=== PATIENT | male | born 1970 | race Caucasian/White ===

== ENCOUNTER 2021-02-21 19:48 | Emergency (ER) | payer MEDICAID, OTHER ==
[~2021-02-21] VITALS: Ht 175.3 cm; Wt 89.4 kg
[2021-02-22] MEDS ORDERED: CEPHALEXIN 500 MG CAP PO ONE (00:30)
[2021-02-22] MEDS ORDERED: CEPH500C PO (00:31)
[2021-02-22 01:10] VITALS: BP 136/83
--- NOTE | 2021-02-24 10:43 | REP ---
INDICATION: LUMP ON LEFT TESTICLE. COMPARISON: None. TECHNIQUE: Real-time sonographic evaluation of scrotum and contents performed. FINDINGS: There is diffuse scrotal wall thickening more so on the left than on the right. Testicles appear normal in size and echotexture, right testicle measuring 2.6 x 1.6 x 2.2 cm and left testicle 2.8 x 1.8 x 2.2 cm. There is no evidence of testicular mass or torsion, blood flow is seen in each testicle with duplex Doppler evaluation. There is a cyst in the head of the left epididymis measuring 7 x 5 x 4 mm. There is 2 mm calcification along the surface of the left testicle. Mildly prominent blood vessels are seen inferior to the left testicle. Below the left testicle there is a heterogeneous hypoechoic mass measuring 3.3 x 1.5 x 1.9 cm. IMPRESSION: In the left hemiscrotum below the left testicle there is an oval heterogeneous mass measuring 3.3 x 1.5 x 1.9 cm. This is a nonspecific finding. It could be related to a hernia and represent mesenteric fat and \ or bowel. This could represent an extratesticular mass. Significant scrotal wall thickening suggests cellulitis, more so on the left than on the right. No testicular mass or torsion. Preliminary report provided by [facility] at the time of the exam. <Electronically signed by Rylan Otto > 02/24/21 [id number]
--- NOTE | 2021-02-24 14:14 | ED PDOC ---
Post-Departure Follow-Up scrotal us faxed to dr diaz and antoni mitchell for fu Daren Person MD February 24, 2021 14:14
== END 2021-02-22 01:12 | disposition home or self-care (01) ==
LOC: M ED 19:48
DX: L72.3 Sebaceous cyst (principal); F17.200 Nicotine dependence, unspecified, uncomplicated; Z79.899 Other long term (current) drug therapy

== ENCOUNTER 2021-02-24 14:31 | Inpatient (IN) | payer OTHER ==
[~2021-02-24] VITALS: Ht 177.8 cm; Wt 89.6 kg
[~2021-02-24 14:31] MED LIST: CEPH500C PO
--- NOTE | 2021-02-24 17:50 | REP ---
INDICATION: pain and swelling. COMPARISON: 02/21/2021. TECHNIQUE: Real-time sonographic evaluation of scrotum and contents performed. FINDINGS: Testicles appear normal in size and echotexture, right testicle measuring 2.6 x 1.7 x 2.4 cm left testicle 2.8 x 2.1 x 2.3 cm. There is no testicular mass or torsion. Blood flow seen in each testicle with duplex Doppler evaluation. Once again there is diffuse left scrotal wall thickening suspicious for cellulitis. There is a cyst in the head of the left epididymis 8 mm in diameter. At the site of a painful red lump of the left scrotum there is an underlying complex structure which has increased in size compared to the prior study, measuring 4.4 x 3.4 x 2.1 cm. There the periphery appears somewhat hyperemic. This appears to lie within the wall of the scrotum and I suspect this represents focal phlegmonous change and possibly a developing abscess. There are small hydroceles bilaterally. IMPRESSION: Diffuse scrotal wall thickening particularly on the left, suspicious for cellulitis. At the site of the painful red lump in the left scrotum there is an underlying complex structure in the wall of the scrotum which has increased in size compared to 02/21/2021, with peripheral hyperemia. I suspect this represents focal phlegmonous change in possibly a developing abscess. <Electronically signed by Rylan Otto > 02/24/21 [id number]
[2021-02-24] MEDS ORDERED: NS 1,000 ML IV ONE (18:40)
[2021-02-24] MEDS ORDERED: ONDANSETRON 4MG/2ML VIAL IV ONE (18:55)
[2021-02-24] MEDS ORDERED: MORPHINE 4 MG/ML 1ML VIAL/SYRINGE (J2270) IV ONE (18:55)
[2021-02-24 19:40] LABS: HEMATOCRIT 45.3 % (42.0-52.0); HEMOGLOBIN 15.2 g/dl (13.5-17.5); MEAN CORPUSCULAR HEMOGLOBIN 30.6 pg (27.0-33.0); MEAN CORPUSCULAR HGB CONC 33.6 g/dl (32.0-36.5); MEAN CORPUSCULAR VOLUME 91.1 fl (80.0-96.0); PLATELET COUNT, AUTOMATED 224 10^3/uL (150-450); RED BLOOD COUNT 4.97 10^6/uL (4.30-6.10); WHITE BLOOD COUNT 10.9 10^3/uL (4.0-10.0)
[2021-02-24 20:03] LABS: ATYPICAL LYMPH 8 % (0-5); EOSINOPHILS 3 % (0-3); LYMPHOCYTES 38 % (16-44); MONOCYTES 4 % (0-5); NEUTROPHILS 47 % (28-66)
[2021-02-24 20:04] LABS: PLATELET ESTIMATE NORMAL (NORMAL)
[2021-02-24 20:09] LABS: BLOOD UREA NITROGEN 8 MG/DL (7-18); CALCIUM LEVEL 8.8 MG/DL (8.5-10.1); CARBON DIOXIDE LEVEL 29 MEQ/L (21-32); CHLORIDE LEVEL 108 MEQ/L (98-107); CREATININE FOR GFR 0.76 MG/DL (0.70-1.30); GLOMERULAR FILTRATION RATE > 60.0 (>56); GLUCOSE, FASTING 86 MG/DL (70-100); POTASSIUM SERUM 3.6 MEQ/L (3.5-5.1); SODIUM LEVEL 141 MEQ/L (136-145)
[2021-02-24 20:19] LABS: ALBUMIN 3.9 GM/DL (3.2-5.2); BILIRUBIN,DIRECT 0.2 MG/DL (0.0-0.2); BILIRUBIN,TOTAL 0.5 MG/DL (0.2-1.0); TOTAL PROTEIN 7.6 GM/DL (6.4-8.2)
[2021-02-24] MEDS ORDERED: GENTAMICIN 80 MG in D5W 50 ML IV ONE (20:35)
[2021-02-24] MEDS ORDERED: VANCOMYCIN HCL 1,000 MG, VIAL MATE ADAPTER 1 EACH in NS 250 ML IV STA (20:48)
[2021-02-24] MEDS ORDERED: CEPH500T PO (20:51)
[2021-02-24] MEDS ORDERED: VANCOMYCIN HCL 1,000 MG, VIAL MATE ADAPTER 1 EACH in NS 250 ML IV ONE (21:00)
[2021-02-24] MEDS ORDERED: MIDAZOLAM INJ 2MG/2ML VIAL (J2250 PER 1MG) As Ordered ONE (21:12)
[2021-02-24] MEDS ORDERED: fentaNYL 100 MCG/2 ML INJECTION (J3010) As Ordered ONE ×2 (21:13→22:37)
[2021-02-24] MEDS ORDERED: propofoL 200 MG/20 ML VIAL As Ordered ONE (21:15)
[2021-02-24] MEDS ORDERED: dexameTHASONE 4 MG/ML 1ML VIAL (J1100 PER 1MG) As Ordered ONE (21:15)
[2021-02-24] MEDS ORDERED: LIDOCAINE 2% 100MG/5ML SDV (FOR ANES.) As Ordered ONE (21:16)
[2021-02-24] MEDS ORDERED: KETOROLAC 60MG 2ML VIAL As Ordered ONE (21:18)
[2021-02-24] MEDS ORDERED: ONDANSETRON 4MG/2ML VIAL As Ordered ONE (21:18)
[2021-02-24] MEDS ORDERED: NS 1,000 ML IV SCH (21:20)
[2021-02-24] MEDS ORDERED: MOM 30ML SUSPENSION UDC PO PRN (21:20)
[2021-02-24] MEDS ORDERED: MAALOX 30 ML SUSP *UDC PO PRN (21:20)
[2021-02-24] MEDS ORDERED: ACETAMINOPHEN TAB 650MG DOSE (2X325MG) PO PRN (21:20)
[2021-02-24 21:30] LABS: RSV AMPLIFICATION NEGATIVE (NEGATIVE)
--- NOTE | 2021-02-24 21:37 | HPEPDOC ---
[facility] Medical History & Physical Date of Admission February 24, 2021 Date of Service: February 24, 2021 History and Physical CHIEF COMPLAINT: Testicular swelling HISTORY OF PRESENT ILLNESS: This is a 51-year-old male who presented to emergency department for scrotal pain and swelling. Patient tells me that he noticed a small raisin-sized mass around his left testicle but not attached to the testicle and close to the skin months ago about a month ago he noticed that it increased in size and became the size of a grapefruit. Over the past 8 days if continues to get more swollen. He came to the emergency department on Wednesday ultrasound was done suggestive of a cyst and he was given Keflex. Yesterday he began having pain in the area and continued swelling of his testicle. Up until this point he had not experienced any pain. He denies any fevers or chills. He denies chest pain or shortness of breath. He tells me that the pain and swelling is localized around the left testicle and doesn't think it has spread elsewhere. Pain doesn't radiate localized around the left testicle. PAST MEDICAL/SURGICAL HISTORY: Denies medical problems Endorses neck surgery C7-T1 Endorses right wrist surgery with titanium plate SOCIAL HISTORY: Denies alcohol use Endorses tobacco use for about 30 years one pack per day Denies illicit drug use other than cannabis use FAMILY HISTORY: Reviewed and none contributory to this admission ALLERGIES: Please see below. REVIEW OF SYSTEMS: 10 point review of systems complete all negative otherwise stated in HPI HOME MEDICATIONS: Please see below. PHYSICAL EXAMINATION: Constitutional: Awake and alert, in no apparent distress ENT: Sclera are clear. Mucosa is moist. Respiratory: Lungs CTA bilaterally. No respiratory distress. Cardiovascular: RRR S1 and S2 are normal, no murmur Gastrointestinal: Abdomen is soft, non distended, non tender, BS present. Musculoskeletal: No lower extremity edema. : Scrotum is swollen especially on the left side there is diffuse scrotal wall swelling is indurated and painful around the left testicle. Neurologic: No focal neurological deficit. Mental Status: A&O x3, normal affect LABORATORY DATA: See below. IMAGING: Scrotum US IMPRESSION: Diffuse scrotal wall thickening particularly on the left, suspicious for cellulitis. At the site of the painful red lump in the left scrotum there is an underlying complex structure in the wall of the scrotum which has increased in size compared to 02/21/2021, with peripheral hyperemia. I suspect this represents focal phlegmonous change in possibly a developing abscess. MICROBIOLOGY: Please see below. ASSESSMENT # Complex left testicular collection concerning for abscess # Possibly overlying testicular cellulitis PLAN Admitted to medical service. Concern of a complex testicular collection could be an abscess. Urology was consulted. Will likely be going to the operating room with Dr. Kavon cody for I&D. Nothing by mouth for now. IVFs. IV vancomycin and Zosyn. Blood cultures were collected. Has mild leukocytosis 10.9. A [facility] Vital Signs Vital Signs Date Time Temp Pulse Resp B/P (MAP) Pulse Ox O2 Delivery O2 Flow Rate FiO2 02/24/21 20:04 18 02/24/21 19:16 02/24/21 15:13 97.8 82 97 Room Air Laboratory Data Labs 24H Laboratory Tests 2 02/24/21 19:27: Neutrophils (%) (Auto) , Nucleated Red Blood Cells % (auto) 0.0, Neutrophils 47, Lymphocytes (Manual) 38, Monocytes (Manual) 4, Eosinophils (Manual) 3, Atypical Lymphocytes 8H, Platelet Estimate NORMAL, Anion Gap 4L, Glomerular Filtration Rate > 60.0, Lactic Acid Level 0.7, Calcium Level 8.8, Total Bilirubin 0.5, Direct Bilirubin 0.2, Aspartate Amino Transf (AST/SGOT) 7, Alanine Am inotransferase (ALT/SGPT) 15, Alkaline Phosphatase 113, Total Protein 7.6, Albumin 3.9, Albumin/Globulin Ratio 1.1, Lipase 140 02/24/21 19:28: Urine Color YELLOW, Urine Appearance CLEAR, Urine pH 5.0, Urine Specific [address] 1.023, Urine Protein NEGATIVE, Urine Glucose (UA) NEGATIVE, Urine Ketones NEGATIVE, Urine Blood 1+H, Urine Nitrite NEGATIVE, Urine Bilirubin NEGATIVE, Urine Urobilinogen 0.2, Urine Leukocyte Esterase NEGATIVE, Urine WBC (Auto) 1, Urine RBC (Auto) 3, Urine Hyaline Casts (Auto) 0, Urine Bacteria (Auto) NEGATIVE, Urine Squamous Epithelial Cells 0, Urine Mucus (Auto) SMALL, Urine Sperm (Auto) , Trichomonas vaginalis (PCR) NOT DETECTED 02/24/21 20:42: Coronavirus (COVID-19)(PCR) NEGATIVE, Influenza Type A (RT-PCR) NEGATIVE, Influenza Type B (RT-PCR) NEGATIVE, Respiratory Syncytial Virus (PCR) NEGATIVE CBC/BMP Laboratory Tests 02/24/21 19:27 Microbiology Microbiology 02/24/21 Blood Culture, Received Pending 02/24/21 Blood Culture, Received Pending Home Medications Scheduled Cephalexin (Cephalexin) 500 Mg Tablet, 500 MG PO QID STARTED 02/22/21 Allergies Coded Allergies: No Known Allergies (Unverified , 02/21/21) A-FIB/CHADSVASC A-FIB History Current/History of A-Fib/PAF?: No KEISHA LYON MD February 24, 2021 21:37
[2021-02-24] MEDS ORDERED: VANCOMYCIN HCL 1,000 MG, VIAL MATE ADAPTER 1 EACH in NS 250 ML IV SCH (21:50)
[2021-02-24] MEDS ORDERED: GENTAMICIN 80 MG in IV 1 EA IV ONE (22:00)
[2021-02-24] MEDS ORDERED: ZOSYN 4.5GM VIAL (J2543) As Ordered ONE (22:24)
--- NOTE | 2021-02-24 22:24 | SMCUROLCON ---
Urology Consultation General Date of Consultation 02/24/21 Reason For Consultation This patient is seen for Cyst In Scrotum. History of Present Illness This is a 51 y/o M w/ no significant PMH presenting to the ER w/ worsening L scrotal pain and swelling over the last 3 days. He was seen in the ER in 02/21/21 for L scrotal pain and was discharged on keflex for presumed cellulitis. He notes that it became progressively worse and more painful today. He denies fevers or chills. He has no voiding complaints. On scrotal US today there is diffuse scrotal wall swelling (L > R) as well as a 4.4 x 3.4 x 2.1 cm complex collection concerning for an abscess. Past Medical History Medical History None Surgical Hstory Right wrist surgery Cervical spine surgery Allergies Allergies: Coded Allergies: No Known Allergies (Unverified , 02/21/21) Review of Systems Constitutional: Denies: Fever, Chills, Sweats, Weakness, Malaise ENT: Denies: Head Aches, Sore Throat, Epistaxis Pulmonary: Denies: Dyspnea, Cough Cardiovascular: Denies Chest Pain, Denies Palpitations Gastrointestinal: Denies: Nausea, Vomiting, Abdominal Pain Genitourinary: Reports: Other Symptoms (L scrotal swelling, redness, and pain) Musculoskeletal: Denies: Neck Pain, Back Pain Neurological: Denies: Weakness, Numbness, Incoordination, Change in Speech Psych: Reports: Mood Normal; Denies: Anxiety, Depression Physical Examination General Exam: Alert, Cooperative, No Acute Distress Chest Exam: Normal air movement Heart Exam: Rate Normal Abdomen Exam: Soft Male Exam b/l descended testicles; L scrotal edema and erythema w/o crepitus; moderately tender Neuro Exam: Normal Speech Psych Exam: Mental status NL, Mood NL Vital Signs/I&O Vital Signs Date Time Temp Pulse Resp B/P (MAP) Pulse Ox O2 Delivery O2 Flow Rate FiO2 02/24/21 20:04 18 02/24/21 19:16 02/24/21 15:13 97.8 82 97 Room Air Laboratory Data 24H Labs Laboratory Tests 2 02/24/21 19:27: Neutrophils (%) (Auto) , Nucleated Red Blood Cells % (auto) 0.0, Neutrophils 47, Lymphocytes (Manual) 38, Monocytes (Manual) 4, Eosinophils (Manual) 3, Atypical Lymphocytes 8H, Platelet Estimate NORMAL, Anion Gap 4L, Glomerular Filtration Rate > 60.0, Lactic Acid Level 0.7, Calcium Level 8.8, Total Bilirubin 0.5, Direct Bilirubin 0.2, Aspartate Amino Transf (AST/SGOT) 7, Alanine Kenny otransferase (ALT/SGPT) 15, Alkaline Phosphatase 113, Total Protein 7.6, Albumin 3.9, Albumin/Globulin Ratio 1.1, Lipase 140 02/24/21 19:28: Urine Color YELLOW, Urine Appearance CLEAR, Urine pH 5.0, Urine Specific [place] 1.023, Urine Protein NEGATIVE, Urine Glucose (UA) NEGATIVE, Urine Ketones NEGATIVE, Urine Blood 1+H, Urine Nitrite NEGATIVE, Urine Bilirubin NEGATIVE, Urine Urobilinogen 0.2, Urine Leukocyte Esterase NEGATIVE, Urine WBC (Auto) 1, Urine RBC (Auto) 3, Urine Hyaline Casts (Auto) 0, Urine Bacteria (Auto) NEGATIVE, Urine Squamous Epithelial Cells 0, Urine Mucus (Auto) SMALL, Urine Sperm (Auto) CBC/BMP Laboratory Tests 02/24/21 19:27 Microbiology Microbiology 02/24/21 Blood Culture, Received Pending 02/24/21 Blood Culture, Received Pending Assessment This is a 51 y/o M w/ a L scrotal abscess. I recommend that we take him to the OR this evening for incision and drainage of the L scrotal abscess. After a discussion of the risks and benefits, informed consent was signed. Plan - vancomycin and zosyn given - NPO - to OR now ERICKA NOVAK MD February 24, 2021 20:44
[2021-02-24] MEDS ORDERED: BACITRACIN OINTMENT 30GM TUBE As Ordered ONE (22:26)
[2021-02-24] MEDS ORDERED: BUPIVACAINE HCL 0.25% 30ML VIAL As Ordered ONE (22:26)
[2021-02-24] MEDS ORDERED: ePHEDrine SULFATE 25 MG/5 ML(5MG/ML) SYRINGE As Ordered ONE (22:49)
[2021-02-24] MEDS ORDERED: fentaNYL 100 MCG/2 ML INJECTION (J3010) IV PRN (23:30)
[2021-02-24] MEDS ORDERED: METOCLOPRAMIDE INJ 10MG/2ML VIAL (J2765 PER 1) IV PRN (23:30)
[2021-02-24] MEDS ORDERED: MORPHINE 2 MG/ML 1ML VIAL (J2270) IV PRN (23:30)
[2021-02-24] MEDS ORDERED: KETOROLAC 30 MG/ML 1ML VIAL IV PRN (23:30)
[2021-02-24] MEDS ORDERED: ONDANSETRON 4MG/2ML VIAL IV PRN (23:30)
[2021-02-24] MEDS ORDERED: LR 1,000 ML IV SCH (23:30)
[2021-02-24] MEDS ORDERED: oxyCODONE 5MG TAB PO PRN (23:30)
[2021-02-25] VITALS (7 sets, daily range): BP systolic 102–132; BP diastolic 62–78
[2021-02-25] MEDS ORDERED: VANCOMYCIN HCL 1,000 MG, VIAL MATE ADAPTER 1 EACH in NS 250 ML IV ONE (00:30)
[2021-02-25] MEDS: PIPERACILLIN/TAZOBACTAM SOD 4.5 GM in D5W MINI-BAG PLUS 50 ML IV SCH ×4 (05:01→22:31)
[2021-02-25 06:20] LABS: HEMATOCRIT 41.4 % (42.0-52.0); MEAN CORPUSCULAR HEMOGLOBIN 30.7 pg (27.0-33.0); MEAN CORPUSCULAR HGB CONC 33.8 g/dl (32.0-36.5); MEAN CORPUSCULAR VOLUME 90.8 fl (80.0-96.0); PLATELET COUNT, AUTOMATED 212 10^3/uL (150-450); RED BLOOD COUNT 4.56 10^6/uL (4.30-6.10); WHITE BLOOD COUNT 9.2 10^3/uL (4.0-10.0)
[2021-02-25 06:53] LABS: ALT/SGPT 83 U/L (12-78); BILIRUBIN,TOTAL 0.4 MG/DL (0.2-1.0); BLOOD UREA NITROGEN 9 MG/DL (7-18); CALCIUM LEVEL 8.4 MG/DL (8.5-10.1); CARBON DIOXIDE LEVEL 24 MEQ/L (21-32); CHLORIDE LEVEL 111 MEQ/L (98-107); GLOMERULAR FILTRATION RATE > 60.0 (>56); GLUCOSE, FASTING 136 MG/DL (70-100); MAGNESIUM LEVEL 1.9 MG/DL (1.8-2.4); POTASSIUM SERUM 4.3 MEQ/L (3.5-5.1); SODIUM LEVEL 141 MEQ/L (136-145); TOTAL PROTEIN 6.6 GM/DL (6.4-8.2)
--- NOTE | 2021-02-25 07:23 | RO ---
OPERATIVE NOTE DATE OF OPERATION: 02/24/2021 PREOPERATIVE DIAGNOSIS: Left scrotal abscess. POSTOPERATIVE DIAGNOSIS: Left scrotal abscess. PROCEDURE: Incision and drainage of left scrotal abscess. SURGEON: Jacinto Jacobson MD. EXECUTIVE CASINO HOST: None. ANESTHESIA: General. OPERATIVE INDICATIONS: This is a 51-year-old male who presented to the emergency room with worsening left scrotal pain and swelling. An ultrasound was notable for a 4 cm left scrotal abscess. He is brought to the operating room today for treatment. DESCRIPTION OF PROCEDURE: The patient was brought to the operating room and general anesthesia was induced. Prophylactic broad-spectrum antibiotics were infused. He was placed in the supine position, prepped and draped in the usual sterile fashion. At this point, an approximately 3-4 cm longitudinal incision was made over the scrotal abscess. Once the incision was made, a large amount of pus immediately drained. Cultures were obtained of the fluid. Approximately 30 mL of purulent fluid drained out. After that was done, I probed the abscess cavity to break up any loculations. After that was done, I thoroughly irrigated the abscess cavity with normal saline. Next, we checked for hemostasis and there was no significant bleeding. Once certain all of the abscess was completely opened up and it was thoroughly irrigated, and the cavity was packed with minimally moist Denis. It was then dressed with ABD gauze pads and this marked conclusion of the procedure. The patient was then awakened from anesthesia and transported to the recovery room in stable condition. ESTIMATED BLOOD LOSS: 10 mL. COMPLICATIONS: None. SPECIMENS: Cultures of abscess fluid. PLAN: The patient will be watched in the hospital on broad-spectrum antibiotics. He will be discharged home in the next few days. He will continue with wet-to-dry dressings for a few weeks. [facility]ALTH[facility]amsi
[2021-02-25] MEDS: VANCOMYCIN HCL 750 MG, VIAL MATE ADAPTER 1 EACH in NS 250 ML IV SCH ×2 (08:32→16:12)
[2021-02-25] MEDS: DOCUSATE SODIUM 100MG CAPSULE PO SCH ×2 (08:32→20:55)
[2021-02-25] MEDS: HEPARIN SOD (PORCINE) 5000UNITS/ML 1ML VIAL/SYRINGE SC SCH ×2 (08:32→20:55)
[2021-02-25] MEDS ORDERED: MOM 30ML SUSPENSION UDC PO PRN (08:45)
[2021-02-25] MEDS ORDERED: SENOKOT S TAB PO PRN (08:45)
--- NOTE | 2021-02-25 08:53 | IPNPDOC ---
Subjective Review oF Systems Chief Complaint The patient is a 51-year-old male admitted with a reason for visit of Cyst In Scrotum. Events since Last Encounter No acute events o/n. His pain is much better this morning. No f/c/ns. No difficulty ambulating. Objective Physical Examination General Exam: Alert, Cooperative, No Acute Distress Neuro Exam: Normal Speech Psych Exam: Mental status NL, Mood NL Other physical findings left scrotal incision clean w/ improving erythema and edema - no active drainage - less tender to touch today Vital Signs/I&O Vital Signs Date Time Temp Pulse Resp B/P (MAP) Pulse Ox O2 Delivery O2 Flow Rate FiO2 02/25/21 06:00 97.3 71 21 102/64 (77) 95 Room Air 02/24/21 23:15 12.0 I&O- Last 24 Hours up to 6 AM 02/25/21 06:00 Intake Total 2410 ml Output Total 10 ml Balance 2400 ml Laboratory Data Labs 24H Laboratory Tests 2 02/24/21 19:27: Neutrophils (%) (Auto) , Nucleated Red Blood Cells % (auto) 0.0, Neutrophils 47, Lymphocytes (Manual) 38, Monocytes (Manual) 4, Eosinophils (Manual) 3, Atypical Lymphocytes 8H, Platelet Estimate NORMAL, Anion Gap 4L, Glomerular Filtration Rate > 60.0, Lactic Acid Level 0.7, Calcium Level 8.8, Total Bilirubin 0.5, Direct Bilirubin 0.2, Aspartate Amino Transf (AST/SGOT) 7, Alanine Aminot ransferase (ALT/SGPT) 15, Alkaline Phosphatase 113, Total Protein 7.6, Albumin 3.9, Albumin/Globulin Ratio 1.1, Lipase 140 02/24/21 19:28: Urine Color YELLOW, Urine Appearance CLEAR, Urine pH 5.0, Urine Specific [place] 1.023, Urine Protein NEGATIVE, Urine Glucose (UA) NEGATIVE, Urine Ketones NEGATIVE, Urine Blood 1+H, Urine Nitrite NEGATIVE, Urine Bilirubin NEGATIVE, Urine Urobilinogen 0.2, Urine Leukocyte Esterase NEGATIVE, Urine WBC (Auto) 1, Urine RBC (Auto) 3, Urine Hyaline Casts (Auto) 0, Urine Bacteria (Auto) NEGATIVE, Urine Squamous Epithelial Cells 0, Urine Mucus (Auto) SMALL, Urine Sperm (Auto) , Trichomonas vaginalis (PCR) NOT DETECTED 02/24/21 20:42: Coronavirus (COVID-19)(PCR) NEGATIVE, Influenza Type A (RT-PCR) NEGATIVE, Influenza Type B (RT-PCR) NEGATIVE, Respiratory Syncytial Virus (PCR) NEGATIVE 02/25/21 06:06: Nucleated Red Blood Cells % (auto) 0.0, Anion Gap 6L, Glomerular Filtration Rate > 60.0, Lactic Acid Level 1.3, Calcium Level 8.4L, Total Bilirubin 0.4, Aspartate Amino Transf (AST/SGOT) 117H, Alanine Aminotransferase (ALT/SGPT) 83H, Alkaline Phosphatase 118H, Total Protein 6.6, Albumin 3.0#L, Albumin/Globulin Ratio 0.8, Magnesium Level 1.9 CBC/BMP Laboratory Tests 02/24/21 19:27 02/25/21 06:06 Microbiology Microbiology 02/24/21 Gram Stain - Final, Resulted 02/24/21 Abscess Culture, Resulted Pending 02/24/21 Anaerobic Culture, Received Pending 02/24/21 Blood Culture, Received Pending 02/24/21 Blood Culture, Received Pending Assessment/Plan Date Seen The patient was seen on 02/25/21. Patient Summary This is a 51 y/o M POD1 s/p I&D of a L scrotal abscess. His WBC is coming down. He feels much better. Plan/VTE VTE Prophylaxis Ordered?: Yes VTE Exclusion Mechanical Proph: N/A:VTE Prophy Ordered Plan - continue broad spectrum abx and adjust based on cultures - BID dressing changes for now - recommend giving pain medication prior to changing the dressings - ambulate - assuming he continues to improve and pain is controlled w/ PO meds then likely d/c home tomorrow ERICKA NOVAK MD February 25, 2021 08:53
[2021-02-25] MEDS ORDERED: KETOROLAC 30 MG/ML 1ML VIAL IV ONE (09:00)
[2021-02-25] MEDS ORDERED: MORPHINE 10 MG/ML 1ML VIAL (J2270) IV ONE (09:00)
[2021-02-25] MEDS ORDERED: PERCOCET 5MG/325MG TAB PO ONE (09:00)
[2021-02-25] MEDS: VANCOMYCIN HCL 500 MG in D5W MINI-BAG PLUS 100 ML IV SCH ×2 (09:27→17:47)
--- NOTE | 2021-02-25 11:46 | IPN ---
PROGRESS NOTE DATE: 02/25/2021 SUBJECTIVE: Patient complains of left scrotal pain rated a 10/10 especially when he moves around and walks, still with significant drainage soaking the dressing at the bedside, afebrile, no chills overnight. OBJECTIVE: Vital signs: Temperature 97.3, pulse 71, respiratory rate 21, blood pressure 102/64, 95% on room air. General: Awake, alert, oriented times 3, answering questions appropriately. Lungs: Clear to auscultation, no wheezes, rhonchi or rales. Heart: S1 and S2 sinus rhythm. , Abdomen: Soft, nontender, nondistended, positive bowel sounds. Extremities: No cyanosis or clubbing. Left scrotum has an incision with drainage that is soaking the dressing at the bedside, severe erythema and induration noted. LABORATORY DATA: CBC and metabolic panel have been reviewed. ASSESSMENT: This is a 51-year-old male with no significant past medical history admitted on 02/24/2021 with scrotal pain, swelling and edema found to have a scrotal abscess, brought to the operating room by urologist Dr. Jacobson status post incision and drainage of the left scrotal abscess with a 3-4 cm longitudinal incision and 30 mL of purulent fluid drained out. Wound cultures are still pending. Currently on vanco and Zosyn. PLAN: Left scrotal abscess status post incision and drainage -with3 cm incision site to the left scrotum with 30 mL of purulent material removed, -wound culture still pending, - currently on day number 2 of I.V. vanco and Zosyndosed by pharmacy - Patient's pain is uncontrolled on Percocet 2 tablets q6h as needed and 1 tablet q4h as needed morphine and I.V. Toradol. -Discharge home inthe morning once the patient's pain is well controlled. RICHY
[2021-02-25] MEDS: LACTOBACILLUS ACIDOPHILUS CAP (BACID) PO SCH ×2 (11:54→18:12)
[2021-02-25] MEDS: NS 1,000 ML IV SCH ×2 (11:54→22:00)
[2021-02-25] MEDS ORDERED: PERCOCET 5MG/325MG TAB PO PRN ×2 (13:00)
[2021-02-25] MEDS: KETOROLAC 30 MG/ML 1ML VIAL IV SCH ×2 (16:11→22:30)
[2021-02-25] MEDS: PERCOCET 5MG/325MG TAB PO SCH (20:55)
[2021-02-26] MEDS ORDERED: VANCOMYCIN HCL 1,000 MG, VIAL MATE ADAPTER 1 EACH in NS 250 ML IV SCH (01:00)
[2021-02-26] MEDS: VANCOMYCIN HCL 1,000 MG, VIAL MATE ADAPTER 1 EACH in NS 250 ML IV SCH ×3 (01:43→17:45)
[2021-02-26 05:25] VITALS: BP 116/77
[2021-02-26] MEDS: KETOROLAC 30 MG/ML 1ML VIAL IV SCH ×4 (05:43→21:08)
[2021-02-26] MEDS: PIPERACILLIN/TAZOBACTAM SOD 4.5 GM in D5W MINI-BAG PLUS 50 ML IV SCH ×3 (05:44→16:31)
[2021-02-26 06:38] LABS: BASO # 0.1 10^3/uL (0.0-0.2); BASO % 0.5 % (0.0-1.0); EOS # 0.2 10^3/uL (0.0-0.5); EOS % 2.3 % (0.0-3.0); HEMATOCRIT 38.4 % (42.0-52.0); HEMOGLOBIN 12.9 g/dl (13.5-17.5); LYMPH % 39.6 % (24.0-44.0); MEAN CORPUSCULAR HEMOGLOBIN 30.6 pg (27.0-33.0); MEAN CORPUSCULAR HGB CONC 33.6 g/dl (32.0-36.5); MONO # 0.6 10^3/uL (0.0-0.8); MONO % 6.2 % (2.0-8.0); NEUTROPHILS # 5.2 10^3/uL (1.5-8.5); NEUTROPHILS % 51.2 % (36.0-66.0); PLATELET COUNT, AUTOMATED 205 10^3/uL (150-450); RED BLOOD COUNT 4.22 10^6/uL (4.30-6.10); WHITE BLOOD COUNT 10.1 10^3/uL (4.0-10.0)
[2021-02-26 06:58] LABS: BLOOD UREA NITROGEN 7 MG/DL (7-18); C REACTIVE PROTEIN QUANTITATIV 0.78 MG/DL (0.00-0.30); CALCIUM LEVEL 7.9 MG/DL (8.5-10.1); CARBON DIOXIDE LEVEL 24 MEQ/L (21-32); CHLORIDE LEVEL 114 MEQ/L (98-107); CREATININE FOR GFR 0.83 MG/DL (0.70-1.30); GLOMERULAR FILTRATION RATE > 60.0 (>56); GLUCOSE, FASTING 116 MG/DL (70-100); POTASSIUM SERUM 3.8 MEQ/L (3.5-5.1); SODIUM LEVEL 144 MEQ/L (136-145)
[2021-02-26 07:13] LABS: ERYTHROCYTE SEDIMENTATION RATE 12 mm/hr (0-20)
[2021-02-26] MEDS: LACTOBACILLUS ACIDOPHILUS CAP (BACID) PO SCH ×3 (08:51→17:45)
[2021-02-26] MEDS: HEPARIN SOD (PORCINE) 5000UNITS/ML 1ML VIAL/SYRINGE SC SCH ×2 (08:51→21:08)
[2021-02-26] MEDS: DOCUSATE SODIUM 100MG CAPSULE PO SCH ×2 (08:51→21:07)
[2021-02-26] MEDS: PERCOCET 5MG/325MG TAB PO SCH ×2 (08:52→21:08)
[2021-02-26] MEDS: NS 1,000 ML IV SCH (08:59)
--- NOTE | 2021-02-26 11:27 | IPNPDOC ---
Subjective Review oF Systems Chief Complaint The patient is a 51-year-old male admitted with a reason for visit of Cyst In Scrotum. Events since Last Encounter No acute events o/n. Patient tolerated the dressing changes w/ pain meds prior. Ambulating fine. No n/v. No f/c/ns. Objective Physical Examination General Exam: Alert, Cooperative, No Acute Distress Neuro Exam: Normal Speech Psych Exam: Mental status NL, Mood NL Other physical findings L scrotal edema improving; no erythema; no drainage from incision; mildly tender around the incision Vital Signs/I&O Vital Signs Date Time Temp Pulse Resp B/P (MAP) Pulse Ox O2 Delivery O2 Flow Rate FiO2 02/26/21 09:25 16 02/26/21 05:25 97.8 69 116/77 (90) 98 Room Air 02/24/21 23:15 12.0 I&O- Last 24 Hours up to 6 AM 02/26/21 05:59 Intake Total 2320 ml Balance 2320 ml Laboratory Data Labs 24H Laboratory Tests 2 02/25/21 23:00: Vancomycin Level Trough 19.4 02/26/21 06:04: Immature Granulocyte % (Auto) 0.2, Neutrophils (%) (Auto) 51.2, Lymphocytes (%) (Auto) 39.6, Monocytes (%) (Auto) 6.2, Eosinophils (%) (Auto) 2.3, Basophils (%) (Auto) 0.5, Neutrophils # (Auto) 5.2, Lymphocytes # (Auto) 4.0, Monocytes # (Auto) 0.6, Eosinophils # (Auto) 0.2, Basophils # (Auto) 0.1, Nucleated Red Blood Cells % (auto) 0.0, Erythrocyte Sedimentation Rate 12, Anion Gap 6L, Glomerular Filtration Rate > 60.0, Calcium Level 7.9L, C-Reactive Protein, Quantitative 0.78H CBC/BMP Laboratory Tests 02/26/21 06:04 Microbiology Microbiology 02/24/21 Gram Stain - Final, Resulted 02/24/21 Abscess Culture, Resulted Pending 02/24/21 Anaerobic Culture, Received Pending 02/24/21 Blood Culture - Preliminary, Resulted No growth after 24 hours . All specim... 02/24/21 Blood Culture - Preliminary, Resulted No growth after 24 hours . All specim... Assessment/Plan Date Seen The patient was seen on 02/26/21. Patient Summary This is a 51 y/o M POD2 s/p I&D of a L scrotal abscess. Plan/VTE VTE Prophylaxis Ordered?: Yes VTE Exclusion Mechanical Proph: N/A:VTE Prophy Ordered Plan - can start doing dressing changes once daily and pack w/ minimally moist Denis and cover w/ ABD - patient's to observe dressing changes today so that she can do this at home - continue broad spectrum abx and adjust based on culture results - ok for discharge home once appropriate PO abx is identified - my office will arrange f/u in 1 wk ERICKA NOVAK MD February 26, 2021 11:27
--- NOTE | 2021-02-26 13:30 | IPN ---
PROGRESS NOTE DATE: 02/26/2021 SUBJECTIVE: The patient still complains of 7 out of 10 pain when he ambulates. No pain when he is sitting still or lying down without moving. No fevers or chills overnight. Gram stain and left abscess culture results are not finalized. OBJECTIVE: VITAL SIGNS: Temperature 97.8, pulse 69, respiratory rate 19, blood pressure 116/77, 98% on room air. GENERAL: Generally awake, alert and oriented times three, answering questions appropriately. LUNGS: Clear to auscultation, no wheezing, rales or rhonchi. HEART: S1, S2 sinus rhythm. ABDOMEN: Abdomen is soft, nontender, nondistended. Positive bowel sounds. EXTREMITIES: No cyanosis, clubbing, or pitting edema. : Left scrotum has an incision with slight serous drainage. Erythema and induration has improved. Laboratory data, CBC, metabolic panel, microbiology, imaging studies have been reviewed. ASSESSMENT AND PLAN: This is a 51-year-old male with no past medical history admitted on 02/24 with scrotal pain and swelling and edema, found to have a left scrotal abscess, brought to the OR by urologist Dr. Jacobson status post incision and drainage of left scrotal abscess with a 3 to 4 cm longitudinal incision and 3 mL of purulent fluid drained out. Wound cultures are still pending. The patient is currently on broad spectrum antibiotics. Percocet as needed. Bowel regimen. DVT prophylaxis. Once culture results are finalized, the patient may be discharged home to complete a total of 14 days of antibiotics from admission.
[2021-02-26 14:00] VITALS: BP 127/79
[2021-02-26] MEDS ORDERED: ONDANSETRON 4MG/2ML VIAL IV ONE (16:55)
[2021-02-26] MEDS ORDERED: METOCLOPRAMIDE INJ 10MG/2ML VIAL (J2765 PER 1) IV ONE (16:55)
[2021-02-26] MEDS ORDERED: ONDANSETRON 4MG/2ML VIAL IV PRN (16:55)
[2021-02-26 22:00] VITALS: BP 133/81
[2021-02-27] MEDS: PIPERACILLIN/TAZOBACTAM SOD 4.5 GM in D5W MINI-BAG PLUS 50 ML IV SCH (00:41)
[2021-02-27] MEDS ORDERED: clonazePAM 0.5 MG TAB PO ONE (00:55)
[2021-02-27] MEDS: VANCOMYCIN HCL 1,000 MG, VIAL MATE ADAPTER 1 EACH in NS 250 ML IV SCH (01:55)
[2021-02-27] MEDS: KETOROLAC 30 MG/ML 1ML VIAL IV SCH ×2 (04:00→09:48)
[2021-02-27 06:00] VITALS: BP 135/80
[2021-02-27] MEDS ORDERED: cefTRIAXone SOD 1 GM in D5W MINI-BAG PLUS 50 ML IV SCH (06:00)
[2021-02-27 06:21] LABS: BASO # 0.1 10^3/uL (0.0-0.2); BASO % 0.7 % (0.0-1.0); EOS # 0.4 10^3/uL (0.0-0.5); EOS % 3.7 % (0.0-3.0); HEMATOCRIT 40.5 % (42.0-52.0); HEMOGLOBIN 13.6 g/dl (13.5-17.5); LYMPH # 3.9 10^3/uL (1.5-5.0); LYMPH % 39.6 % (24.0-44.0); MEAN CORPUSCULAR HEMOGLOBIN 30.3 pg (27.0-33.0); MEAN CORPUSCULAR HGB CONC 33.6 g/dl (32.0-36.5); MEAN CORPUSCULAR VOLUME 90.2 fl (80.0-96.0); MONO # 0.8 10^3/uL (0.0-0.8); MONO % 7.6 % (2.0-8.0); NEUTROPHILS # 4.7 10^3/uL (1.5-8.5); NEUTROPHILS % 48.1 % (36.0-66.0); PLATELET COUNT, AUTOMATED 213 10^3/uL (150-450); RED BLOOD COUNT 4.49 10^6/uL (4.30-6.10); WHITE BLOOD COUNT 9.8 10^3/uL (4.0-10.0)
[2021-02-27 06:43] LABS: BLOOD UREA NITROGEN 9 MG/DL (7-18); C REACTIVE PROTEIN QUANTITATIV 0.67 MG/DL (0.00-0.30); CALCIUM LEVEL 8.4 MG/DL (8.5-10.1); CARBON DIOXIDE LEVEL 28 MEQ/L (21-32); CHLORIDE LEVEL 110 MEQ/L (98-107); CREATININE FOR GFR 0.81 MG/DL (0.70-1.30); GLOMERULAR FILTRATION RATE > 60.0 (>56); GLUCOSE, FASTING 104 MG/DL (70-100); POTASSIUM SERUM 3.9 MEQ/L (3.5-5.1); SODIUM LEVEL 142 MEQ/L (136-145)
[2021-02-27 08:06] LABS: ERYTHROCYTE SEDIMENTATION RATE 16 mm/hr (0-20)
[2021-02-27] MEDS: HEPARIN SOD (PORCINE) 5000UNITS/ML 1ML VIAL/SYRINGE SC SCH (09:00)
[2021-02-27] MEDS: LACTOBACILLUS ACIDOPHILUS CAP (BACID) PO SCH ×2 (09:46→12:58)
[2021-02-27] MEDS: PERCOCET 5MG/325MG TAB PO SCH (09:48)
[2021-02-27] MEDS ORDERED: RISATAB3 PO (12:54)
[2021-02-27] MEDS ORDERED: SENN-52 PO (12:54)
[2021-02-27] MEDS ORDERED: PERC10TA26 PO (12:54)
[2021-02-27] MEDS ORDERED: BACT800T5 PO (12:56)
[2021-02-27] MEDS ORDERED: AUGM875T28 PO (13:06)
--- NOTE | 2021-02-27 16:03 | DS.PDOC ---
Discharge Summary General Date of Admission February 24, 2021 at 21:40 Date of Discharge 02/27/21 Discharge Summary DISCHARGE DIAGNOSES: LEFT SCROTAL ABSCESS DISCHARGE MEDICATIONS: SEE BELOW DISCHARGE INSTRUCTIONS: PCP FU 5DAYS, FU APPT W DR NOVAK IN 1 WK. DRESSING CHANGES, ACTIVITY, AND SHOWER PRIVILEDGES PER UROLOGIST OFF WORK FOR 4WEEKS UNTIL 03/30/21 PROCEDURE DURING THIS ADMISSION: urologist Dr. Novak status post incision and drainage of left scrotal abscess with a 3 to 4 cm longitudinal incision and 3 mL of purulent fluid drained out. HOSPITAL COURSE: This is a 51-year-old male with no past medical history admitted on 02/24 with scrotal pain and swelling and edema, found to have a left scrotal abscess, brought to the OR by urologist Dr. Novak status post incision and drainage of left scrotal abscess with a 3 to 4 cm longitudinal incision and 3 mL of purulent fluid drained out. Wound cultures : no growth aerobically. Pt was empirically given iv vanco and iv zosyn from 02/24-02/27, and changed to iv ceftriaxone on 02/27. 2tabs Percocet BID prior to dressing changes. Bowel regimen. DVT prophylaxis. He was afebrile with normal white count during the entire hospital stay, and had improved crp on discharge. His was taught on how to do bid dressing changes, and was proficient prior to discharge. Post discharge activity, and showering priviledges per urology recommendations. DISCHARGE PHYSICAL EXAMINATION VITAL SIGNS: SEE BELOW GENERAL: Generally awake, alert and oriented times three, answering questions appropriately. LUNGS: Clear to auscultation, no wheezing, rales or rhonchi. HEART: S1, S2 sinus rhythm. ABDOMEN: Abdomen is soft, nontender, nondistended. Positive bowel sounds. EXTREMITIES: No cyanosis, clubbing, or pitting edema. : Left scrotum has an incision with slight serous drainage. Erythema and induration has improved. DISCHARGE LABORATORY DATA, MICROBIOLOGY, IMAGING STUDIES: SEE BELOW TIME SPENT ON DISCHARGE: 30 MINUTES Vital Signs/I&Os Vital Signs Date Time Temp Pulse Resp B/P (MAP) Pulse Ox O2 Delivery O2 Flow Rate FiO2 02/27/21 10:18 16 02/27/21 06:00 97.4 65 135/80 (98) 97 Room Air 02/24/21 23:15 12.0 I&O- Last 24 Hours up to 6 AM 02/27/21 06:00 Intake Total 3810 ml Balance 3810 ml Laboratory Data Labs 24H Laboratory Tests 2 02/26/21 16:45: Vancomycin Level Trough 17.7 02/26/21 18:45: Methicillin-Resist S.aureus DNA PCR NOT DETECTED 02/27/21 06:04: Immature Granulocyte % (Auto) 0.3, Neutrophils (%) (Auto) 48.1, Lymphocytes (%) (Auto) 39.6, Monocytes (%) (Auto) 7.6, Eosinophils (%) (Auto) 3.7H, Basophils (%) (Auto) 0.7, Neutrophils # (Auto) 4.7, Lymphocytes # (Auto) 3.9, Monocytes # (Auto) 0.8, Eosinophils # (Auto) 0.4, Basophils # (Auto) 0.1, Nucleated Red Blood Cells % (auto) 0.0, Erythrocyte Sedimentation Rate 16, Anion Gap 4L, Glomerular Filtration Rate > 60.0, Calcium Level 8.4L, C-Reactive Protein, Q uantitative 0.67H, Procalcitonin 0.07 CBC/BMP Laboratory Tests 02/27/21 06:04 Microbiology Microbiology 02/26/21 Gastrointestinal Tract Panel (PCR) - Final, Complete 02/24/21 Gram Stain - Final, Complete 02/24/21 Abscess Culture - Final, Complete 02/24/21 Anaerobic Culture, Received Pending 02/24/21 Blood Culture - Preliminary, Resulted No Growth after 48 hours. All Specime... 02/24/21 Blood Culture - Preliminary, Resulted No Growth after 48 hours. All Specime... Discharge Medications Scheduled Amoxicillin/Potassium Clav (Augmentin 875-125 Tablet) 1 Each Tablet, 1 TAB PO BID L.acidoph/L.bulg/B.bif/S.therm (Caroline-Bid Caplet) 1 Each Tablet, 1 EA PO WM Sulfamethoxazole/Trimethoprim (Bactrim Ds Tablet) 1 Each Tablet, 1 TAB PO BID Scheduled PRN Oxycodone HCl/Acetaminophen (Percocet 10-325 mg Tablet) 1 Each Tablet, 1 TAB PO Q4-6HP PRN for pain Sennosides/Docusate Sodium (Senna Plus Tablet) 1 Each Tablet, 2 TAB PO BIDP PRN for CONSTIPATION Allergies Coded Allergies: No Known Allergies (Unverified , 02/21/21) TD MARIN MD February 27, 2021 16:03
== END 2021-02-27 17:18 | disposition home or self-care (01) | DRG 501 ==
LOC: M ED 14:31 → M ED INP 21:40 → M MS5PR 23:38
PROVIDERS: ADMIT Urology; ATTEND Urology
PROC: 0V950ZZ Drainage of Scrotum, Open Approach (ICD-10-PCS; principal; 2021-02-24 20:40)
DX: N49.2 Inflammatory disorders of scrotum (principal); F17.200 Nicotine dependence, unspecified, uncomplicated; Z79.899 Other long term (current) drug therapy

== ENCOUNTER 2021-03-13 14:07 | Emergency (ER) | payer OTHER ==
[~2021-03-13] VITALS: Ht 172.7 cm; Wt 88.9 kg
[~2021-03-13 14:07] MED LIST changes: +AUGM875T28 PO; +BACT800T5 PO; +CEPH500T PO; +PERC10TA26 PO; +RISATAB3 PO; +SENN-52 PO
[2021-03-13 15:18] LABS: BASO # 0.1 10^3/uL (0.0-0.2); BASO % 0.5 % (0.0-1.0); EOS # 0.3 10^3/uL (0.0-0.5); EOS % 2.1 % (0.0-3.0); HEMATOCRIT 43.8 % (42.0-52.0); HEMOGLOBIN 15.2 g/dl (13.5-17.5); LYMPH # 3.6 10^3/uL (1.5-5.0); LYMPH % 27.1 % (24.0-44.0); MEAN CORPUSCULAR HEMOGLOBIN 30.6 pg (27.0-33.0); MEAN CORPUSCULAR HGB CONC 34.7 g/dl (32.0-36.5); MEAN CORPUSCULAR VOLUME 88.3 fl (80.0-96.0); MONO # 0.8 10^3/uL (0.0-0.8); MONO % 6.2 % (2.0-8.0); NEUTROPHILS # 8.4 10^3/uL (1.5-8.5); NEUTROPHILS % 63.7 % (36.0-66.0); PLATELET COUNT, AUTOMATED 301 10^3/uL (150-450); RED BLOOD COUNT 4.96 10^6/uL (4.30-6.10); WHITE BLOOD COUNT 13.2 10^3/uL (4.0-10.0)
[2021-03-13 16:00] LABS: ALBUMIN 3.6 GM/DL (3.2-5.2); ALT/SGPT 23 U/L (12-78); AMYLASE 76 U/L (25-115); BILIRUBIN,DIRECT < 0.1 MG/DL (0.0-0.2); BILIRUBIN,TOTAL 0.5 MG/DL (0.2-1.0); LIPASE 116 U/L (73-393); TOTAL PROTEIN 7.6 GM/DL (6.4-8.2)
[2021-03-13] MEDS ORDERED: ISOVUE-370 76% 100ML VIAL As Ordered ONE (16:02)
--- NOTE | 2021-03-13 16:25 | REP ---
INDICATION: lower abd pain. COMPARISON: None. TECHNIQUE: Helical scanning was acquired and 4 mm axial images are re-formatted. Coronal and sagittal MPR images were generated and reviewed. The contrast enhancement dose is 100 mL of intravenous Isovue 370. FINDINGS: Preliminary digital progress worker radiograph is unremarkable. The lung bases are clear on axial CT images. The liver is normal in size homogeneous in texture. Spleen is unremarkable. There is a punctate calcification in the pancreatic tail. There is some fatty involution of the pancreatic tail. No other pancreatic abnormality is observed. No biliary or pancreatic ductal dilation is observed. There is a granulomatous calcification in celiac axis lymph node. Normal adrenal glands are seen. The spleen is unremarkable in size and homogeneous in texture. There is no evidence of hydronephrosis or intrarenal calculus. No retroperitoneal mass or adenopathy is seen. A normal appendix is noted in the right mid abdomen medial to the cecum. No Mabel appendiceal fluid or spur stranding is seen. There is mural thickening in the rectum and rectosigmoid colon which may reflect enteritis or proctitis. Small bowel loops are unremarkable normal in caliber and appearance. There are dystrophic calcifications in the prostate. Seminal vesicles and urinary bladder are unremarkable. No abdominal wall defect is seen. No bony destructive lesion is seen. 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 IMPRESSION: Mild mural thickening in the rectum and rectosigmoid colon consistent with enterocolitis. No evidence of obstruction, free air, or abscess. Normal appendix seen. <Electronically signed by Ryan Byrd > 03/13/21 [id number]
[2021-03-13 20:05] VITALS: BP 134/79
[2021-03-13] MEDS ORDERED: VANC125C3 PO (20:14)
[2021-03-13] MEDS ORDERED: VANCOMYCIN ORAL SOL 250MG/5ML ORAL SYRINGE PO ONE (20:15)
== END 2021-03-13 20:44 | disposition home or self-care (01) ==
LOC: M ED 14:07
DX: A04.72 Enterocolitis due to Clostridium difficile, not specified as recurrent (principal); F17.200 Nicotine dependence, unspecified, uncomplicated; F12.10 Cannabis abuse, uncomplicated
CPT/HCPCS: 74177; 80047; 80076; 81001; 82150; 83690; 85025; 87505; 99284; Q9967

== ENCOUNTER → 2021-06-13 | Outpatient (CLI) | payer OTHER ==
[~2021-06-13] MED LIST changes: +OMEP-221; +VANC125C3 PO
[2021-06-13 13:55] LABS: HEMATOCRIT 47.3 % (42.0-52.0); HEMOGLOBIN 15.9 g/dl (13.5-17.5); MEAN CORPUSCULAR HEMOGLOBIN 30.2 pg (27.0-33.0); MEAN CORPUSCULAR HGB CONC 33.6 g/dl (32.0-36.5); MEAN CORPUSCULAR VOLUME 89.8 fl (80.0-96.0); PLATELET COUNT, AUTOMATED 235 10^3/uL (150-450); RED BLOOD COUNT 5.27 10^6/uL (4.30-6.10); WHITE BLOOD COUNT 6.5 10^3/uL (4.0-10.0)
[2021-06-13 14:22] LABS: ALT/SGPT 20 U/L (12-78); BILIRUBIN,TOTAL 0.4 MG/DL (0.2-1.0); BLOOD UREA NITROGEN 13 MG/DL (7-18); CALCIUM LEVEL 9.3 MG/DL (8.5-10.1); CARBON DIOXIDE LEVEL 25 MEQ/L (21-32); CHLORIDE LEVEL 111 MEQ/L (98-107); CHOLESTEROL LEVEL 282 MG/DL (<200); CREATININE FOR GFR 0.86 MG/DL (0.70-1.30); GLOMERULAR FILTRATION RATE > 60.0 (>56); GLUCOSE, FASTING 99 MG/DL (70-100); HDL CHOLESTEROL 40 MG/DL (>40); POTASSIUM SERUM 4.1 MEQ/L (3.5-5.1); SODIUM LEVEL 141 MEQ/L (136-145); TRIGLYCERIDES LEVEL 212 MG/DL (<150)
[2021-06-13 14:23] LABS: ALBUMIN 3.8 GM/DL (3.2-5.2); FREE T4 0.86 NG/DL (0.76-1.46); LDL CHOLESTEROL 200 MG/DL (<100); MAGNESIUM LEVEL 2.2 MG/DL (1.8-2.4); NON-HDL-C 242 MG/DL; THYROID STIMULATING HORMONE 0.619 uIU/ML (0.358-3.740); TOTAL PROTEIN 7.8 GM/DL (6.4-8.2)
== END ==
LOC: M PLALAB 09:39
PROVIDERS: ATTEND Nurse Practitioner Family
DX: K52.9 Noninfective gastroenteritis and colitis, unspecified (principal); K21.00 Gastro-esophageal reflux disease with esophagitis, without bleeding; K62.5 Hemorrhage of anus and rectum; Z13.220 Encounter for screening for lipoid disorders

== ENCOUNTER 2021-06-16 10:36 | Emergency (ER) | payer OTHER ==
[~2021-06-16] VITALS: Ht 172.7 cm; Wt 93.3 kg
[~2021-06-16 10:36] MED LIST changes: -OMEP-221
[2021-06-16] MEDS ORDERED: OMEP-221 (10:56)
--- NOTE | 2021-06-16 12:49 | REP ---
INDICATION: left scrotal swelling, pain, hx cystectomy has area. COMPARISON: 02/24/2021. TECHNIQUE: Real-time sonographic evaluation of scrotum and contents performed. FINDINGS: The testicles are normal in size and echotexture, right testicle measuring 3.0 x 1.5 x 2.0 cm and left testicle 3.0 x 1.7 x 2.4 cm. There is no testicular mass or torsion. Blood flow is seen in each testicle with duplex Doppler evaluation. There is a cyst with septations in the head of the left epididymis measuring 6 x 5 x 7 mm. At the site of the palpable lump there is a heterogeneous area in the left scrotal wall measuring 3.2 x 1.2 x 2.2 cm, decreased since prior study. IMPRESSION: No testicular mass or torsion. At the site of the palpable lump in the left scrotal wall there is a heterogeneous area which does not appear to be as hypoechoic as on the prior study, appearing less fluid like. It has decreased in size as discussed above. This may represent phlegmonous change. There is no discrete fluid collection. <Electronically signed by Rylan Otto > 06/16/21 0212
[2021-06-16] MEDS ORDERED: BACTRIM 160MG/800MG DS TAB PO ONE (13:20)
[2021-06-16] MEDS ORDERED: BACT800T5 PO (13:22)
[2021-06-16 13:50] VITALS: BP 138/88
--- NOTE | 2021-06-18 08:36 | ED PDOC ---
Post-Departure Follow-Up scrotal us faxed formal report to dr benito for Daren Fierro MD Jun 18, 2021 08:36
== END 2021-06-16 13:51 | disposition home or self-care (01) ==
LOC: M ED 10:36
DX: N49.2 Inflammatory disorders of scrotum (principal)

== ENCOUNTER → 2021-07-24 | Outpatient (CLI) | payer OTHER ==
[~2021-07-24] MED LIST changes: +OMEP-221
== END ==
LOC: M LABSMTC 09:31
PROVIDERS: ATTEND Pediatrics
DX: Z11.52 Encounter for screening for COVID-19 (principal)

== ENCOUNTER → 2021-11-15 | Outpatient (CLI) | payer OTHER ==
[~2021-11-15] MED LIST changes: +FAMO20TA5 PO; -OMEP-221; +OMEP40CA5; +ROSU20TA5 PO
== END ==
LOC: M LABSMTC 10:39
PROVIDERS: ATTEND Anesthesiology
DX: Z01.818 Encounter for other preprocedural examination (principal); Z11.52 Encounter for screening for COVID-19

== ENCOUNTER 2021-11-20 08:47 | Day surgery (SDC) | payer OTHER ==
[~2021-11-20] VITALS: Ht 175.3 cm; Wt 89.8 kg
[~2021-11-20 08:47] MED LIST changes: +NS 1,000 ML IV ONE
[2021-11-20] MEDS ORDERED: fentaNYL 100 MCG/2 ML INJECTION As Ordered ONE (10:14)
[2021-11-20] MEDS ORDERED: propofoL 200 MG/20 ML VIAL As Ordered ONE ×2 (10:15→10:19)
[2021-11-20] MEDS ORDERED: LIDOCAINE 2% 100MG/5ML SDV (FOR ANES.) As Ordered ONE (10:15)
[2021-11-20 11:23] VITALS: BP 114/76
== END 2021-11-20 11:26 | disposition home or self-care (01) ==
LOC: M OPP 08:47
PROVIDERS: ATTEND Internal Medicine Gastroenterology
DX: K63.5 Polyp of colon (principal); K57.30 Diverticulosis of large intestine without perforation or abscess without bleeding; K64.8 Other hemorrhoids; K92.1 Melena; R12 Heartburn; K20.91 Esophagitis, unspecified with bleeding; K31.A19 Gastric intestinal metaplasia without dysplasia, unspecified site; Z79.899 Other long term (current) drug therapy; F17.290 Nicotine dependence, other tobacco product, uncomplicated
CPT/HCPCS: 43239; 45385; 88305; J3010

== ENCOUNTER → 2022-07-07 | Outpatient (CLI) | payer OTHER ==
[~2022-07-07] MED LIST changes: -NS 1,000 ML IV ONE
== END ==
LOC: M RAD 13:58
PROVIDERS: ATTEND Otolaryngology
DX: J32.9 Chronic sinusitis, unspecified (principal); R43.0 Anosmia

== ENCOUNTER → 2022-10-08 | Outpatient (CLI) | payer OTHER | LOC: M SOG 07:58 | PROVIDERS: ATTEND Physician Assistant | DX: M79.641 Pain in right hand (principal); M79.642 Pain in left hand ==

== ENCOUNTER → 2022-10-30 | Outpatient (CLI) | payer OTHER | LOC: M PLARAD 09:57 | PROVIDERS: ATTEND Orthopaedic Surgery Hand Surgery | DX: M54.2 Cervicalgia (principal) ==

== ENCOUNTER → 2022-12-09 | Outpatient (CLI) | payer OTHER | LOC: M LABSMTC 09:12 | PROVIDERS: ATTEND Anesthesiology | DX: Z01.812 Encounter for preprocedural laboratory examination (principal); Z11.52 Encounter for screening for COVID-19 ==

== ENCOUNTER → 2022-12-09 | Outpatient (CLI) | payer OTHER | LOC: M EKG 11:31 | PROVIDERS: ATTEND Anesthesiology | DX: I51.9 Heart disease, unspecified (principal) ==

== ENCOUNTER 2022-12-14 07:29 | Day surgery (SDC) | payer OTHER ==
[~2022-12-14] VITALS: Ht 175.3 cm; Wt 95.3 kg
[~2022-12-14 07:29] MED LIST changes: +BUPIVACAINE HCL 0.25% 30ML VIAL As Ordered ONE
[2022-12-14] MEDS ORDERED: LR 1,000 ML IV SCH ×2 (07:55→10:00)
[2022-12-14] MEDS ORDERED: MIDAZOLAM INJ 2MG/2ML VIAL As Ordered ONE (08:59)
[2022-12-14] MEDS ORDERED: propofoL 200 MG/20 ML VIAL As Ordered ONE ×2 (09:00→09:29)
[2022-12-14] MEDS ORDERED: fentaNYL 100 MCG/2 ML INJECTION As Ordered ONE (09:00)
[2022-12-14] MEDS ORDERED: LIDOCAINE 2% 100MG/5ML SDV (FOR ANES.) As Ordered ONE (09:01)
[2022-12-14] MEDS ORDERED: ONDANSETRON 4MG 2ML VIAL As Ordered ONE (09:02)
[2022-12-14] MEDS ORDERED: ceFAZolin 2 GM/D5W 50 ML IV BAG As Ordered ONE (09:26)
[2022-12-14] MEDS ORDERED: BACITRACIN OINTMENT 30GM TUBE As Ordered ONE (09:41)
[2022-12-14] MEDS ORDERED: KETOROLAC 60MG 2ML VIAL As Ordered ONE (10:00)
[2022-12-14] MEDS ORDERED: ONDANSETRON 4MG 2ML VIAL IV PRN (10:00)
[2022-12-14] MEDS ORDERED: oxyCODONE 5MG TAB PO PRN (10:00)
[2022-12-14] MEDS ORDERED: PERC5TAB12 PO (10:26)
[2022-12-14] MEDS: fentaNYL 100 MCG/2 ML INJECTION IV PRN ×4 (10:35→10:56)
[2022-12-14 11:32] VITALS: BP 136/75
== END 2022-12-14 11:53 | disposition home or self-care (01) ==
LOC: M SDC 07:29
PROVIDERS: ATTEND Orthopaedic Surgery Hand Surgery
DX: T84.84XA Pain due to internal orthopedic prosthetic devices, implants and grafts, initial encounter (principal); Y79.2 Prosthetic and other implants, materials and accessory orthopedic devices associated with adverse incidents; M67.331 Transient synovitis, right wrist; E78.00 Pure hypercholesterolemia, unspecified; K21.9 Gastro-esophageal reflux disease without esophagitis; Z88.5 Allergy status to narcotic agent
CPT/HCPCS: 20680; 25118; 76000; 88304; J0690; J1100; J2250; J2405; J3010

== ENCOUNTER → 2023-01-11 | Outpatient (CLI) | payer OTHER ==
[~2023-01-11] MED LIST changes: -BUPIVACAINE HCL 0.25% 30ML VIAL As Ordered ONE; +PERC5TAB12 PO
== END ==
LOC: M SOG 10:00
PROVIDERS: ATTEND Physician Assistant
DX: M25.631 Stiffness of right wrist, not elsewhere classified (principal)

== ENCOUNTER 2023-09-07 10:18 | Day surgery (SDC) | payer OTHER ==
[~2023-09-07] VITALS: Ht 175.3 cm; Wt 92.0 kg
[~2023-09-07 10:18] MED LIST changes: +OMEP40CA5 PO; -ROSU20TA5 PO; +ROSU20TA61 PO
[2023-09-07] MEDS ORDERED: LR 1,000 ML IV SCH ×3 (11:05→17:35)
[2023-09-07] MEDS ORDERED: COCAINE 4% 4ML NASAL SOLUTION BTL As Ordered ONE ×2 (14:10→14:16)
[2023-09-07] MEDS ORDERED: LIDOCAINE W/EPINEPHRINE 1% 20ML VIAL As Ordered ONE ×2 (14:10→14:15)
[2023-09-07] MEDS ORDERED: OXYMETAZOLINE 0.05% NASAL SPRAY (AFRIN) As Ordered ONE ×2 (14:10→14:16)
[2023-09-07] MEDS ORDERED: fentaNYL 100 MCG/2 ML INJECTION As Ordered ONE (15:24)
[2023-09-07] MEDS ORDERED: MIDAZOLAM INJ 2MG/2ML VIAL As Ordered ONE (15:24)
[2023-09-07] MEDS ORDERED: SUGAMMADEX SODIUM 500 MG/5 ML VIAL (BRIDION) As Ordered ONE (15:26)
[2023-09-07] MEDS ORDERED: LIDOCAINE 2% 100MG/5ML SDV (FOR ANES.) As Ordered ONE (15:26)
[2023-09-07] MEDS ORDERED: propofoL 200 MG/20 ML VIAL As Ordered ONE ×3 (15:26→16:24)
[2023-09-07] MEDS ORDERED: ROCURONIUM BROMIDE 50MG/5ML VIAL As Ordered ONE (15:26)
[2023-09-07] MEDS ORDERED: ONDANSETRON 4MG 2ML VIAL As Ordered ONE (15:27)
[2023-09-07] MEDS ORDERED: ACETAMINOPHEN 1000MG 100ML IV BAG As Ordered ONE (15:28)
[2023-09-07] MEDS ORDERED: fentaNYL 250 MCG/5 ML INJECTION As Ordered ONE (15:29)
[2023-09-07] MEDS ORDERED: ONDANSETRON 4MG 2ML VIAL IV PRN ×2 (16:50→17:35)
[2023-09-07] MEDS ORDERED: fentaNYL 100 MCG/2 ML INJECTION IV PRN (16:50)
[2023-09-07] MEDS ORDERED: HYDROMORPHONE HCL 0.5 MG/ 0.5 ML SYRINGE IV PRN (16:50)
[2023-09-07] MEDS ORDERED: oxyCODONE 5MG TAB PO PRN (16:50)
[2023-09-07] MEDS ORDERED: traMADol 50 MG TAB PO ONE (17:15)
[2023-09-07] MEDS ORDERED: ANEXSIA, NORCO 7.5MG/325MG TABLET(HYDROCODONE/APAP) PO PRN (17:35)
[2023-09-07 17:40] VITALS: BP 146/89; TEMP 97.3; O2SAT 97
== END 2023-09-07 18:05 | disposition home or self-care (01) ==
LOC: M SDC 10:18
PROVIDERS: ATTEND Otolaryngology
DX: J34.2 Deviated nasal septum (principal); J32.2 Chronic ethmoidal sinusitis; J32.0 Chronic maxillary sinusitis; J32.1 Chronic frontal sinusitis; J34.3 Hypertrophy of nasal turbinates; E78.00 Pure hypercholesterolemia, unspecified; K21.9 Gastro-esophageal reflux disease without esophagitis; Z79.899 Other long term (current) drug therapy; Z87.891 Personal history of nicotine dependence; Z88.5 Allergy status to narcotic agent
CPT/HCPCS: 30140; 30520; 31253; 31267; 61782; 88305; C9143; J0131; J1100; J2250; J2405; J3010

== ENCOUNTER → 2024-06-07 | Outpatient (CLI) | payer OTHER | LOC: M RAD 15:07 | PROVIDERS: ATTEND Physician Assistant Medical | DX: R10.2 Pelvic and perineal pain (principal) ==

== ENCOUNTER → 2024-08-26 | Outpatient (CLI) | payer OTHER ==
[~2024-08-26] MED LIST changes: -ROSU20TA61 PO; +ROSU20TA86 PO
== END ==
LOC: M EKG 14:46
PROVIDERS: ATTEND Anesthesiology
DX: Z01.818 Encounter for other preprocedural examination (principal)

== ENCOUNTER 2024-08-31 07:55 | Day surgery (SDC) | payer OTHER ==
[~2024-08-31] VITALS: Ht 175.3 cm; Wt 94.4 kg
[2024-08-31] MEDS ORDERED: NS 1,000 ML IV SCH ×2 (08:00→11:15)
[2024-08-31] MEDS ORDERED: MIDAZOLAM INJ 2MG/2ML VIAL As Ordered ONE (08:33)
[2024-08-31] MEDS ORDERED: fentaNYL 100 MCG/2 ML INJECTION As Ordered ONE (08:33)
[2024-08-31] MEDS ORDERED: propofoL 200 MG/20 ML VIAL As Ordered ONE (08:33)
[2024-08-31] MEDS ORDERED: ONDANSETRON 4MG 2ML VIAL As Ordered ONE (08:33)
[2024-08-31] MEDS ORDERED: ROCURONIUM BROMIDE 50MG/5ML VIAL As Ordered ONE (08:33)
[2024-08-31] MEDS ORDERED: LIDOCAINE 2% 100MG/5ML SDV (FOR ANES.) As Ordered ONE (08:33)
[2024-08-31] MEDS ORDERED: SUGAMMADEX SODIUM 500 MG/5 ML VIAL (BRIDION) As Ordered ONE (08:35)
[2024-08-31] MEDS ORDERED: KETOROLAC 60MG 2ML VIAL As Ordered ONE (08:36)
[2024-08-31] MEDS ORDERED: ACETAMINOPHEN 1000MG/100ML IV BAG As Ordered ONE (08:36)
[2024-08-31] MEDS: ceFAZolin SOD 2 GM in IV 1 EA IV ONE (09:37)
[2024-08-31] MEDS ORDERED: dexmedeTOMIDine (4MCG/ML)200MCG/50ML BTL (PRECEDEX) As Ordered ONE (10:43)
[2024-08-31] MEDS ORDERED: HYDROMORPHONE HCL 0.5 MG/ 0.5 ML SYRINGE IV PRN (11:15)
[2024-08-31] MEDS ORDERED: fentaNYL 100 MCG/2 ML INJECTION IV PRN (11:15)
[2024-08-31] MEDS ORDERED: ONDANSETRON 4MG 2ML VIAL IV PRN (11:15)
[2024-08-31] MEDS ORDERED: oxyCODONE 5MG TAB PO PRN (11:15)
[2024-08-31 12:37] VITALS: BP 117/70; TEMP 96.9; O2SAT 96
== END 2024-08-31 13:15 | disposition home or self-care (01) ==
LOC: M SDC 07:55
PROVIDERS: ATTEND Surgery
DX: K40.20 Bilateral inguinal hernia, without obstruction or gangrene, not specified as recurrent (principal); D17.6 Benign lipomatous neoplasm of spermatic cord; Z88.5 Allergy status to narcotic agent; Z79.899 Other long term (current) drug therapy; F17.290 Nicotine dependence, other tobacco product, uncomplicated
CPT/HCPCS: 49650; C1781; J0131; J0665; J0690; J1100; J1885; J2250; J2405; J3010; S2900